=== PATIENT | male | born 1940 | race Caucasian/White ===

== ENCOUNTER 2020-09-29 14:13 | Outpatient (RCR) | payer MEDICARE | END 2020-12-28 | disposition home or self-care (01) | LOC: ONC 14:13 | PROVIDERS: ATTEND Radiology Radiation Oncology | DX: C61 Malignant neoplasm of prostate (principal); I48.91 Unspecified atrial fibrillation; J45.909 Unspecified asthma, uncomplicated; Z85.828 Personal history of other malignant neoplasm of skin; Z96.653 Presence of artificial knee joint, bilateral; Z87.891 Personal history of nicotine dependence | CPT/HCPCS: 99204 ==

== ENCOUNTER 2021-01-26 05:35 | Outpatient (CLI) | payer MEDICARE ==
[~2021-01-26] VITALS: Ht 182.9 cm; Wt 95.5 kg
[2021-01-26] MEDS ORDERED: BICA50TA5 PO (14:27)
[2021-01-26] MEDS ORDERED: BRIMON0.2 OD (14:27)
[2021-01-26] MEDS ORDERED: OMEP20CA18 PO (14:27)
[2021-01-26] MEDS ORDERED: DOFE250C3 PO (14:27)
[2021-01-26] MEDS ORDERED: MELA1TAB20 PO (14:58)
[2021-01-26] MEDS ORDERED: ACET-3075 PO (14:58)
== END 2021-01-26 15:05 ==
LOC: PREOP 05:35
PROVIDERS: ATTEND Radiology Radiation Oncology
DX: Z01.818 Encounter for other preprocedural examination (principal)

== ENCOUNTER 2021-02-02 13:23 | Day surgery (SDC) | payer MEDICARE ==
[~2021-02-02] VITALS: Ht 182.9 cm; Wt 95.5 kg
[2021-02-02] VITALS (8 sets, daily range): BP systolic 120–130; BP diastolic 72–90
[~2021-02-02 13:23] MED LIST: ACET-3075 PO; BICA50TA5 PO; BRIMON0.2 OD; DOFE250C3 PO; MELA1TAB20 PO; OMEP20CA18 PO
--- NOTE | 2021-02-02 13:41 | Progress Note-Pre Operative ---
Pre-Operative Progress Note H&P Reviewed The H&P was reviewed, patient examined and no changes noted. Date Seen by Provider: Feb 02, 2021 Time Seen by Provider: 13:40 Date H&P Reviewed: Feb 02, 2021 Time H&P Reviewed: 13:40 Pre-Operative Diagnosis: Prostate cancer cT1c, PSA 10.7, Mario 9 (4+5) ARACELI LINDSEY MD Feb 02, 2021 13:41
[2021-02-02] MEDS ORDERED: LACTATED RINGERS 1,000 ML IV PRN (14:30)
[2021-02-02] MEDS ORDERED: LIDOCAINE PF 2% 5 ML (XYLOCAINE) VIAL ONE (15:42)
[2021-02-02] MEDS ORDERED: proPOfol 200 MG/20 ML (DIPRIVAN) VIAL IV ONE (15:42)
[2021-02-02] MEDS ORDERED: fentaNYL INJ 100 MCG/2 ML AMP ONE ×2 (15:44→16:10)
[2021-02-02] MEDS ORDERED: SEVOFLURANE (ULTANE) 15 ML INHAL SOLN ONE (16:02)
[2021-02-02] MEDS ORDERED: ONDANSETRON 4 MG/2 ML (SDV) Z0FRAN ONE (16:02)
--- NOTE | 2021-02-02 16:23 | Progress Note-Post Operative ---
Post-Operative Progess Note Surgeon (s)/Grocery Department Manager (s) Surgeon Jordi GOTTI MD Grocery Department Manager: ARACELI LINDSEY MD Pre-Operative Diagnosis Prostate cancer cT1c, PSA 10.7, Mario 9 (4+5) Post-Operative Diagnosis Same as pre op Procedure & Operative Findings Date of Procedure 02/02/21 Procedure Performed/Findings (1) Placement of fiducial gold seed markers (2) Injection of biodegradable hydrogel prostate-rectal spacer utilizing the [employer] system Anesthesia Type General Estimated Blood Loss Estimated blood loss (mL): None Specimens/Packing Specimens Removed None Packing: None ARACELI LINDSEY MD Feb 02, 2021 16:23
--- NOTE | 2021-02-02 16:23 | Discharge Inst-Simple/Standard ---
Discharge Inst-Standard Reconcile Patient Problems Problems Reviewed?: Yes Discharge Medications New, Converted or Re-Newed RX: Other (Pt has antibiotic already at home) Patient Instructions/Follow Up Plan of Care/Instructions/FU: CT simulation at [facility] cancer center 02/16/21 at 10:00 am Activity as Tolerated: Yes Discharge Diet: No Restrictions ARACELI LINDSEY MD Feb 02, 2021 13:53
--- NOTE | 2021-02-02 16:46 | Anesthesia-General Post-Op ---
General Patient Condition Mental Status/LOC: Same as Preop Cardiovascular: Satisfactory Nausea/Vomiting: Absent Respiratory: Satisfactory Pain: Controlled Complications: Absent Post Op Complications Complications None Follow Up Care/Instructions Patient Instructions None needed. Anesthesia/Patient Condition Patient Condition Patient is doing well, no complaints, stable vital signs, no apparent adverse anesthesia problems. No complications reported per nursing. MILAGRO SLOAN CRNA Feb 02, 2021 16:46
[2021-02-02] MEDS ORDERED: APAP 300 MG/CODEINE 30 MG (TYLENOL #3) TAB PO ONE (17:30)
[2021-02-02] MEDS ORDERED: APAP 300 MG/CODEINE 30 MG (TYLENOL #3) TAB ONE (17:31)
== END 2021-02-02 17:45 ==
LOC: SDC 13:23
PROVIDERS: ATTEND Radiology Radiation Oncology
DX: C61 Malignant neoplasm of prostate (principal); I48.91 Unspecified atrial fibrillation; J45.909 Unspecified asthma, uncomplicated; Z85.828 Personal history of other malignant neoplasm of skin; Z90.89 Acquired absence of other organs; Z79.899 Other long term (current) drug therapy; Z87.891 Personal history of nicotine dependence; Z90.49 Acquired absence of other specified parts of digestive tract; Z82.3 Family history of stroke; Z80.0 Family history of malignant neoplasm of digestive organs
CPT/HCPCS: 55874; 55876; 87081; C1889

== ENCOUNTER 2021-05-10 10:57 | Outpatient (RCR) | payer MEDICARE | END 2021-05-17 | disposition home or self-care (01) | LOC: ONC 10:57 | PROVIDERS: ATTEND Radiology Radiation Oncology | DX: C61 Malignant neoplasm of prostate (principal); Z98.890 Other specified postprocedural states | CPT/HCPCS: 77300; 77301; 77334; 77336; 77338; 77385; 99213 ==

== ENCOUNTER 2021-06-09 09:45 | Outpatient (RCR) | payer MEDICARE | END 2021-06-27 | disposition home or self-care (01) | LOC: ONC 09:45 | PROVIDERS: ATTEND Radiology Radiation Oncology | DX: Z51.0 Encounter for antineoplastic radiation therapy (principal); C61 Malignant neoplasm of prostate; I48.91 Unspecified atrial fibrillation; Z98.890 Other specified postprocedural states | CPT/HCPCS: 77336 ==